=== PATIENT | female | born 1955 | race Caucasian/White ===

== ENCOUNTER 2016-08-31 14:52 | Inpatient (IN) | payer OTHER ==
[2016-08-31 15:11] LABS: Basophils % (Auto) 0.8 % (0.0-1.8); Eosinophils % (Auto) 4.8 % (0.0-4.3); Hematocrit 48.3 % (30.3-42.9); Mean Corpuscular HGB Conc 33 % (30-34); Mean Corpuscular Hemoglobin 31 pg (28-32); Mean Corpuscular Volume 93 fl (79-97); Platelet Count 220 K/mm3 (140-440); Red Blood Count 5.22 M/mm3 (3.65-5.03); Red Cell Distribution Width 12.7 % (13.2-15.2); White Blood Count 9.1 K/mm3 (4.5-11.0)
--- NOTE | 2016-08-31 15:15 | Cat Scan Report ---
CT scan of head without contrast: No previous studies available. History: Suspected stroke. Findings: Ventricles are midline in location and normal in size. Ill-defined focal area of low attenuation measuring 3 x 4 cm in diameter noted in the right temporal lobe and a focal area of low attenuation measuring 2.1 x 1.0 cm diameter noted in the right basal ganglia. Focal ill-defined area of low attenuation at the right posterior parietal region measuring 2.2 x 2.1 cm in diameter. No evidence of hemorrhage. No extra-axial fluid collection. Mucosal edema of the right ethmoid, air fluid level in right maxillary sinus and mucosal thickening of sphenoid sinuses. Impression: Multiple areas of low attenuation probably chronic or acute infarcts. MRI scanning recommended. Sinus disease.
[2016-08-31] MEDS ORDERED: TYLENOL PO ONE (15:17)
--- NOTE | 2016-08-31 15:17 | Emergency Department Report ---
HPI - General Time Seen by Provider: 08/31/16 15:01 - [facility] HPI: The patient is a 61-year-old female who presents for evaluation of strokelike symptoms. The patient her report slurred speech since last night, greater than 12 hours prior to my evaluation, constant, severe, and left lower facial drooping and left arm weakness since 9 AM this morning, greater than 6 hours prior to my evaluation, also constant since onset, mild to moderate in severity, waxing and waning in course. The patient denies fever, head injury, headache, neck pain, neck stiffness, vision or hearing changes, smell or taste changes, paresthesias, seizure-like activity, urine or bowel incontinence or retention. ED Review of Systems ROS: Stated complaint: CVA Other details as noted in HPI Constitutional: denies: fever ENT: denies: throat or neck pain Respiratory: denies: cough, shortness of breath Cardiovascular: denies: chest pain Endocrine: denies unexplained weight loss or gain Gastrointestinal: denies: abdominal pain, nausea Genitourinary: denies: dysuria Musculoskeletal: denies: leg swelling Skin: denies: rash Neurological: Reports left facial droop, slurred speech, and left arm weakness denies: headache Hematological/Lymphatic: denies: easy bleeding or easy bruising Psych: denies sadness or hopelessness Physical Exam - Physical Exam Vital Signs: Blood pressure 184/84, heart rate 74, temperature 98F, respiratory rate 16 Physical Exam: General: well-nourished, well-developed, no acute distress Head: Normocephalic, atraumatic Eyes: normal sclera, EOMI, PERRL ENT: Mucous membranes are pale and dry Neck: trachea midline, neck supple, No neck stiffness, no cervical adenopathy Respiratory: Breath sounds equal bilaterally, no wheezing, rales, or rhonchi Cardio: S1 and S2 present, no murmurs, rubs, gallops, capillary refill is delayed Abdomen: Normoactive bowel sounds, soft abdomen, no rigidity, no guarding or rebound tenderness Musc: No pitting edema Skin: No rash Neuro: Alert oriented 3, mild shortness be spasm, left lower facial drooping present, mild left arm coordination deficit compared to the right arm, although no pronator drift, no other weakness, no sensation deficits, reflexes 2+ symmetric on DTR testing, no other obvious gross neuro deficits Psych: Normal affect ED Medical Decision Making - Lab Data Result diagrams: 08/31/16 15:00 08/31/16 15:00 - Medical Decision Making The patient was seen and examined by myself. The patient is placed on a threat monitoring analyst and continuous pulse ox. On initial evaluation, the patient was found to be in no distress. Evaluation orders were placed. CAT scan of the head reveals multiple likely acute versus subacute infarcts in the right parietal and temporal lobes. As the patient's symptoms began greater than 6 hours ago, the patient is not a TPA candidate. The patient is given a tablet of aspirin for treatment of her stroke. The on-call neurologist Dr. Chaidez recommends obtaining echocardiogram and carotid Dopplers. Lab results reveal elevated hemoglobin and hematocrit, consistent with hemoconcentration and exam findings of dehydration, and elevated glucose level of 291, and otherwise labs were grossly unremarkable. The patient is given 500cc normal saline fluid bolus for treatment of dehydration and hyperglycemia. The on-call hospitalist service was contacted. They agreed to admit the patient for further treatment and close monitoring. The ED admit order was placed. The patient was admitted in guarded condition. Critical care attestation.: If time is entered above; I have spent that time in minutes in the direct care of this critically ill patient, excluding procedure time. ED Disposition Clinical Impression: Acute ischemic stroke, Dehydration, Acute hyperglycemia Disposition: DISCHARGED TO HOME OR SELFCARE Is pt being admited?: Yes Does the pt Need Aspirin: Yes Condition: Serious Time of Disposition: 15:17
[2016-08-31] MEDS ORDERED: ACTIVASE IV ONE ×2 (15:19)
[2016-08-31] MEDS ORDERED: NACL 0.9% IV ONE (15:19)
[2016-08-31 15:24] LABS: INR 1.03 (0.87-1.13); Partial Thromboplastin Time 25.3 Sec. (24.2-36.6)
[2016-08-31 16:05] LABS: Creatine Kinase MB 1.2 ng/mL (0.0-4.0)
[2016-08-31] MEDS ORDERED: BABY ASPIRIN PO ONE (16:05)
[2016-08-31 16:06] LABS: Alanine Aminotransferase 7 units/L (7-56); Albumin 4.1 g/dL (3.9-5); Albumin/Globulin Ratio 1.2 %; Alkaline Phosphatase 162 units/L (35-129); Anion Gap 18 mmol/L; Bilirubin,Total 0.7 mg/dL (0.1-1.2); Blood Urea Nitrogen 4 mg/dL (7-17); Calcium 10.5 mg/dL (8.4-10.2); Carbon Dioxide 26 mmol/L (22-30); Chloride 94.2 mmol/L (98-107); Glucose 291 mg/dL (65-100); Potassium 3.1 mmol/L (3.6-5.0); Sodium 135 mmol/L (137-145); Total Protein 7.5 g/dL (6.3-8.2)
[2016-08-31 16:07] LABS: Creatine Kinase 57 units/L (30-135)
[2016-08-31] MEDS ORDERED: NACL ONE (16:07)
[2016-08-31] MEDS ORDERED: NACL 0.9% 500 ML 500 ML IV ONE (16:07)
[2016-08-31] MEDS ORDERED: ZOFRAN IV PRN (16:47)
[2016-08-31] MEDS ORDERED: MILK OF MAGNESIA PO PRN (16:47)
[2016-08-31] MEDS ORDERED: DULCOLAX PR PRN (16:47)
[2016-08-31] MEDS ORDERED: TYLENOL PO PRN (16:47)
--- NOTE | 2016-08-31 17:22 | History and Physical Report ---
History of Present Illness Date of examination: 08/31/16 Chief complaint: Slurred speech since 9:00 this morning Left-sided weakness and unsteadiness since last night History of present illness: 61-year-old female who denies any medical conditions and apparently has not seen MD in many years , was brought into the emergency room with double complaints, and was noted to have left-sided hemiparalysis and she is being admitted for possible acute stroke. TPA was not administered as she was outside the window of 3 hours. Patient otherwise appears to be quite awake and alert. He has the right gaze preference. Her speech at this time appears fair , maybe a little slow. Apparently she fell last night at home and has been noticed unsteadiness with left arm hanging down. This morning around 9 AM noticed slurred speech and was brought to the ER most of the history is obtained from the patient's the patient is also quite awake and alert. He is no history of loss of consciousness or seizure. Workup with CT scan of the head showed acute versus subacute multiple infarcts in the right basal ganglia right temporal lobe and right post parietal lobe Past History Past Medical History: No medical history Past Surgical History: No surgical history Social history: no significant social history Family history: no significant family history Medications and Allergies Active Meds: Active Medications Acetaminophen (Tylenol) 650 mg PO Q4H PRN PRN Reason: Pain MILD(1-3)/Fever >100.5/DIMAS Aspirin (Aspirin) 325 mg PO QDAY [facility] Atorvastatin Calcium (Lipitor) 80 mg PO QHS [facility] Bisacodyl (Dulcolax) 10 mg MO QDAY PRN PRN Reason: Constipation unrelieved by MOM Clopidogrel Bisulfate (Plavix) 75 mg PO DAILY [facility] Heparin Sodium (Porcine) (Heparin) 5,000 unit SUB-Q Q8HR [facility] Hydralazine HCl (Apresoline) 10 mg IV Q6H PRN PRN Reason: Hypertension Sodium Chloride (Nacl 0.45% 1000 Ml) 1,000 mls @ 42 mls/hr IV DIRECT [facility] Insulin Aspart (Novolog) 0 units SUB-Q Q6H [facility] PRN Reason: Protocol Magnesium Hydroxide (Milk Of Magnesia) 30 ml PO Q4H PRN PRN Reason: Constipation Ondansetron HCl (Zofran) 4 mg IV Q8H PRN PRN Reason: N/V unrelieved by [facility] Potassium Chloride (K-Dur) 40 meq PO ONCE ONE Stop: 08/31/16 17:00 Review of Systems Constitutional: no weight loss, no weight gain, no fever, no chills Ears, nose, mouth and throat: no ear pain, no ear discharge, no sore throat, no headache, no vertigo Cardiovascular: no chest pain, no palpitations, no syncope, no lightheadedness, no shortness of breath, no high blood pressure Respiratory: no cough, no shortness of breath Gastrointestinal: no abdominal pain, no nausea, no vomiting, no diarrhea, no constipation, no melena Genitourinary Female: urge incontinence, no dysuria Menstruation: postmenopausal Rectal: no pain Musculoskeletal: no neck pain, no low back pain, no arthritis Integumentary: no rash Neurological: no head injury, no seizures, no syncope Psychiatric: no anxiety, no depression Endocrine: no excessive thirst, no polydipsia, no polyuria, no nocturia Exam - Constitutional Vitals: Temp Pulse Resp BP Pulse Ox 98.4 F 74 16 186/84 97 08/31/16 15:44 08/31/16 15:44 08/31/16 15:44 08/31/16 15:44 08/31/16 15:44 General appearance: Present: no acute distress, well-nourished, obese - EENT Eyes: Present: PERRL, EOM intact ENT: hearing intact, clear oral mucosa - Neck Neck: Present: supple, normal ROM. Absent: masses or JVD, carotid bruits - Respiratory Respiratory effort: normal Respiratory: bilateral: CTA - Cardiovascular Rhythm: regular Heart Sounds: Present: S1 & S2 - Extremities Extremities: No edema - Abdominal General gastrointestinal: Present: soft, non-tender. Absent: hepatomegaly, splenomegaly - Rectal Rectal Exam: deferred - Integumentary Integumentary: Present: clear - Musculoskeletal Musculoskeletal: left sided weakness (left pronator drift,, power in the left upper and lower extremity is 3 over 5, cannot flex in the left knee is sluggish , there is right gaze preference with subtle left facial droop) - Psychiatric Psychiatric: appropriate mood/affect, intact judgment & insight Results - Labs CBC & Chem 7: 08/31/16 15:00 08/31/16 15:00 Labs: Abnormal lab results 08/31/16 08/31/16 Range/Units 15:00 15:00 RBC 5.22 H (3.65-5.03) M/mm3 Hgb 16.0 H (10.1-14.3) gm/dl Hct 48.3 H (30.3-42.9) % RDW 12.7 L (13.2-15.2) % Eos % (Auto) 4.8 H (0.0-4.3) % Sodium 135 L (137-145) mmol/L Potassium 3.1 L (3.6-5.0) mmol/L Chloride 94.2 L (98-107) mmol/L BUN 4 L (7-17) mg/dL Creatinine 0.4 L (0.7-1.2) mg/dL Glucose 291 H (65-100) mg/dL Calcium 10.5 H (8.4-10.2) mg/dL Alkaline Phosphatase 162 H (35-129) units/L Assessment and Plan - Patient Problems (1) Acute ischemic stroke Current Visit: Yes Status: Acute Plan to address problem: CT scan findings reviewed She was outside the window for TPA Start the patient on aspirin and Plavix We'll scheduled for MRI of the brain and MRA of the neck Neurology consult Speech therapy consult and physical therapy consult (2) Hyperglycemia Current Visit: Yes Status: Acute Plan to address problem: Check A1c Monitor blood sugars with sliding scale coverage (3) Hypokalemia Current Visit: Yes Status: Acute Plan to address problem: Potassium supplements Monitor electrolytes (4) Hypertension Current Visit: Yes Status: Acute Qualifiers: Hypertension type: H Plan to address problem: We will preferred to keep the blood pressure systolic more than 160 for now (5) Obesity (BMI 35.0-39.9 without comorbidity) Current Visit: Yes Status: Acute Plan to address problem: Due to excess calories
--- NOTE | 2016-08-31 17:33 | Admit Criteria Form ---
Admission Criteria Documentation: STROKE: ISCHEMIC Clinical Indications for Admission to Inpatient Care (Place 'X' for any and all applicable criteria): Admission is indicated for ANY ONE of the following(1)(2)(3)(4): [X]I. Acute stroke Extended stay beyond goal length of stay may be needed for(1)(2) [ ]a) Major deficit or clinical deterioration [ ]b) Hospital-acquired infection (eg, urinary tract infection, pneumonia) [ ]c) Embolic cause of stroke [ ]d) Venous thromboembolism(9) [ ]e) Seizures [ ]f) Bleeding (eg, cerebral) [ ]g) Increased intracranial pressure [ ]h) Comorbidities [ ]i) Surgical intervention The original [facility] content created by [employer] has been revised. The portions of the content which have been revised are identified through the use of italic text or in bold, and [facility] has neither reviewed nor approved the modified material. All other unmodified content is copyright [facility]. Please see references footnoted in the original [facility] edition 2016 Admission Criteria Met: Yes
[2016-08-31] MEDS ORDERED: NACL 0.9% 1000 ML 1,000 ML ONE (18:56)
[2016-08-31] MEDS ORDERED: K-DUR PO ONE (18:56)
[2016-08-31] MEDS: K-DUR PO ONE ×2 (19:09→22:50)
[2016-08-31 19:36] LABS: Urine Drugs of Abuse Note Disclamer
[2016-08-31 19:46] LABS: Bilirubin,Urine NEG (Negative); Blood,Urine NEG (Negative); Ketones,Urine TR mg/dL (Negative); Leukocyte Esterase,Urine NEG (Negative); Mucus,Urine FEW /HPF; Nitrite,Urine NEG (Negative); Urobilinogen,Urine < 2.0 mg/dL (<2.0)
[2016-08-31] MEDS ORDERED: NACL 0.45% 1000 ML 1,000 ML IV SCH (20:00)
[2016-08-31] MEDS ORDERED: NOVOLOG SUB-Q ONE (20:23)
[2016-08-31] MEDS: NOVOLOG SUB-Q SCH (20:42)
[2016-08-31] MEDS: HEPARIN SUB-Q SCH (22:50)
[2016-08-31] MEDS: APRESOLINE IV PRN (22:51)
[2016-09-01] MEDS: NOVOLOG SUB-Q SCH ×2 (02:27→05:52)
[2016-09-01] MEDS: HEPARIN SUB-Q SCH ×3 (05:51→21:50)
[2016-09-01 05:54] LABS: Anion Gap 19 mmol/L; BUN/Creatinine Ratio 16.66; Blood Urea Nitrogen 5 mg/dL (7-17); Calcium 9.8 mg/dL (8.4-10.2); Carbon Dioxide 24 mmol/L (22-30); Glucose 287 mg/dL (65-100); Sodium 139 mmol/L (137-145)
--- NOTE | 2016-09-01 11:10 | Consultation ---
History of Present Illness - Reason for Consult Consult date: 09/01/16 stroke - History of Present Illness I dictated a full note on the patient and shalini mcqueen risk factors are at play include HTN, Diabetes, Cholesterol... recommend control BP improve glucose control will continue work up Past History Past Medical History: No medical history Past Surgical History: No surgical history Social history: no significant social history Family history: no significant family history Medications and Allergies Allergies Allergy/AdvReac Type Severity Reaction Status Date / Time No Known Allergies Allergy Unverified 08/31/16 18:11 Active Meds: Active Medications Acetaminophen (Tylenol) 650 mg PO Q4H PRN PRN Reason: Pain MILD(1-3)/Fever >100.5/DIMAS Aspirin (Aspirin) 325 mg PO QDAY [facility] Atorvastatin Calcium (Lipitor) 80 mg PO QHS [facility] Last Admin: 08/31/16 22:50 Dose: 80 mg Bisacodyl (Dulcolax) 10 mg [place] QDAY PRN PRN Reason: Const[place]relie[place] by [facility] Clopidogrel Bisulfate (Plavix) 75 mg PO DAILY [facility] Heparin Sodium (Porcine) (Heparin) 5,000 unit SUB-Q Q8HR [facility] Last Admin: 09/01/16 05:51 Dose: 5,000 unit Hydralazine HCl (Apresoline) 10 mg IV Q6H PRN PRN Reason: Hypertension Last Admin: 08/31/16 22:51 Dose: 10 mg Sodium Chloride (Nacl 0.45% 1000 Ml) 1,000 mls @ 42 mls/hr IV DIRECT [facility] Last Admin: 08/31/16 22:51 Dose: 42 mls/hr Influenza Virus Vaccine Quadrival (Fluarix Quad [id number](36 Mos+)) 60 mcg IM .ONCE ONE Stop: 09/01/16 12:01 Insulin Aspart (Novolog) 0 units SUB-Q Q6H [facility] PRN Reason: Protocol Last Admin: 09/01/16 05:52 Dose: Not Given Magnesium Hydroxide (Milk Of Magnesia) 30 ml PO Q4H PRN PRN Reason: Constipation Ondansetron HCl (Zofran) 4 mg IV Q8H PRN PRN Reason: N/V unrelieved by Reglan Pneumococcal Polyvalent Vaccine (Pneumovax 23) 0.5 ml IM .ONCE ONE Stop: 09/01/16 12:01 Exam - Constitutional Vitals: Temp Pulse Resp BP Pulse Ox 97.2 F L 87 20 132/79 97 09/01/16 04:00 09/01/16 04:00 09/01/16 04:00 09/01/16 04:00 09/01/16 10:00 Results - Labs CBC & Chem 7: 08/31/16 15:00 09/01/16 04:51 Labs: Abnormal lab results 08/31/16 09/01/16 09/01/16 Range/Units 20:20 01:58 04:51 Potassium 3.0 L (3.6-5.0) mmol/L BUN 5 L (7-17) mg/dL Creatinine 0.3 L (0.7-1.2) mg/dL Glucose 287 H (65-100) mg/dL POC Glucose 227 H 290 H (70-105) Hemoglobin A1c (4-6) % 09/01/16 09/01/16 Range/Units 04:51 05:51 Potassium (3.6-5.0) mmol/L BUN (7-17) mg/dL Creatinine (0.7-1.2) mg/dL Glucose (65-100) mg/dL POC Glucose 249 H (70-105) Hemoglobin A1c 12.3 H (4-6) %
[2016-09-01] MEDS ORDERED: FLUARIX QUAD 2016-2017(36 MOS+) IM ONE (12:00)
[2016-09-01] MEDS ORDERED: PNEUMOVAX 23 IM ONE (12:00)
--- NOTE | 2016-09-01 13:51 | Magnetic Resonance Report ---
MRI BRAIN WITHOUT AND WITH CONTRAST: 09/01/16 07:00:00 CLINICAL: Stroke. TECHNIQUE: Axial diffusion, T1, FLAIR, gradient echo T2*, and coronal and axial T2 and sagittal T1 plus coronal and axial postcontrast T1 sequences on a 1.5 María Elena magnet. 20.0 cc of Multihance was injected intravenously for the contrast portion of the exam. Consent was obtained prior to the administration of contrast. FINDINGS: Normal ventricles and sulci. Multiple areas of restricted diffusion in the right hemisphere corresponding to hypodensities identified on yesterday's CT head. A large area of restricted diffusion involves the right hankins radiata and right caudate head nucleus and measures approximately 3.7 x 2.4 cm. Restricted diffusion involving most of the right temporal lobe and a few foci of restricted diffusion involving right parietal lobe white matter. These areas demonstrate enhancement postcontrast. Minimal mass effect and no hemorrhage. No extra-axial collection. No mass. Normal pituitary and optic chiasm. The brainstem and cerebellum are normal. The right MCA flow-void is abnormal and the right ICA is very small. The orbits and soft tissues are normal. Mild bilateral maxillary and right ethmoid sinusitis with maxillary mucous retention cysts. Normal calvarium and skull base. IMPRESSION: 1. Subacute nonhemorrhagic infarcts involving the right hankins radiata, right caudate head nucleus, right parietal lobe white matter and right temporal lobe. 2. Minimal mass effect and no hemorrhage. 3. Abnormal right MCA and right ICA flow-voids suggests a right ICA high-grade stenosis or occlusion.
[2016-09-01] MEDS: ASPIRIN PO SCH (14:46)
[2016-09-01] MEDS: PLAVIX PO SCH (14:46)
--- NOTE | 2016-09-01 15:09 | Magnetic Resonance Report ---
FINAL REPORT EXAM: MR MRA/MRV NECK W CON HISTORY: stroke TECHNIQUE: MRA of the neck was performed after the administration of intravenous contrast. PRIORS: None. FINDINGS: The cervical vasculature is patent without evidence of vessel thrombosis, occlusion, dissection or severe vessel stenosis. No aneurysm. The vessel origins are normal. IMPRESSION: Normal MRA of the neck.
--- NOTE | 2016-09-01 16:00 | Progress Note ---
Assessment and Plan Assessment and plan: CVA, right-sided - Sided weakness - Patient is on aspirin, Plavix and statin. - Hypertension - Continue current therapy consult - Neurology consulted Disposition - We'll continue inpatient care History Interval history: Patient has left-sided hemiparesis. Hospitalist Physical - Physical exam Narrative exam: Not in cardiopulmonary distress. Vital signs as documented. Head exam is unremarkable. No scleral icterus . Neck is without jugular venous distension, thyromegaly, or carotid bruits. Lungs are clear to auscultation. Cardiac exam reveals regular rate and Rhythm. First and second heart sounds normal. No murmurs, rubs or gallops. Abdominal exam reveals normal bowel sounds, no masses, no organomegaly and no aortic enlargement. WEIGH BOSS: Left-sided hemiparalysis, facial palsy. - Constitutional Vitals: Temp Pulse Resp BP Pulse Ox 98.1 F 74 18 159/84 95 09/01/16 11:18 09/01/16 11:18 09/01/16 11:18 09/01/16 11:18 09/01/16 11:18 General appearance: Present: no acute distress, well-nourished, obese Results - Labs CBC & Chem 7: 08/31/16 15:00 09/01/16 04:51 Labs: Laboratory Last Values WBC 9.1 K/mm3 (4.5-11.0) 08/31/16 15:00 RBC 5.22 M/mm3 (3.65-5.03) H 08/31/16 15:00 Hgb 16.0 gm/dl (10.1-14.3) H 08/31/16 15:00 Hct 48.3 % (30.3-42.9) H 08/31/16 15:00 MCV 93 fl (79-97) 08/31/16 15:00 MCH 31 pg (28-32) 08/31/16 15:00 MCHC 33 % (30-34) 08/31/16 15:00 RDW 12.7 % (13.2-15.2) L 08/31/16 15:00 Plt Count 220 K/mm3 (140-440) 08/31/16 15:00 Lymph % (Auto) 28.4 % (13.4-35.0) 08/31/16 15:00 [place] % (Auto) 7.1 % (0.0-7.3) 08/31/16 15:00 Eos % (Auto) 4.8 % (0.0-4.3) H 08/31/16 15:00 Baso % (Auto) 0.8 % (0.0-1.8) 08/31/16 15:00 Lymph # 2.6 K/mm3 (1.2-5.4) 08/31/16 15:00 [place] # 0.7 K/mm3 (0.0-0.8) 08/31/16 15:00 Eos # 0.4 K/mm3 (0.0-0.4) 08/31/16 15:00 Baso # 0.1 K/mm3 (0.0-0.1) 08/31/16 15:00 Seg Neutrophils % 58.9 % (40.0-70.0) 08/31/16 15:00 Seg Neutrophils # 5.4 K/mm3 (1.8-7.7) 08/31/16 15:00 PT 13.4 Sec. (12.2-14.9) 08/31/16 15:00 INR 1.03 (0.87-1.13) 08/31/16 15:00 APTT 25.3 Sec. (24.2-36.6) 08/31/16 15:00 Thrombin Time 18.6 Sec. (15.1-19.6) 08/31/16 15:00 Sodium 139 mmol/L (137-145) 09/01/16 04:51 Potassium 3.0 mmol/L (3.6-5.0) L 09/01/16 04:51 Chloride 99.0 mmol/L (98-107) 09/01/16 04:51 Carbon Dioxide 24 mmol/L (22-30) 09/01/16 04:51 Anion Gap 19 mmol/L 09/01/16 04:51 BUN 5 mg/dL (7-17) L 09/01/16 04:51 Creatinine 0.3 mg/dL (0.7-1.2) L 09/01/16 04:51 Estimated GFR > 60 ml/min 09/01/16 04:51 BUN/Creatinine Ratio 16.66 % 09/01/16 04:51 Glucose 287 mg/dL (65-100) H 09/01/16 04:51 POC Glucose 249 (70-105) H 09/01/16 05:51 Hemoglobin A1c 12.3 % (4-6) H 09/01/16 04:51 Calcium 9.8 mg/dL (8.4-10.2) 09/01/16 04:51 Total Bilirubin 0.7 mg/dL (0.1-1.2) 08/31/16 15:00 AST 11 units/L (5-40) 08/31/16 15:00 ALT 7 units/L (7-56) 08/31/16 15:00 Alkaline Phosphatase 162 units/L (35-129) H 08/31/16 15:00 Total Creatine Kinase 57 units/L (30-135) 08/31/16 15:00 CK-MB (CK-2) 1.2 ng/mL (0.0-4.0) 08/31/16 15:00 CK-MB (CK-2) Rel Index 2.1 (0-4) 08/31/16 15:00 Troponin T < 0.010 ng/mL (0.00-0.029) 08/31/16 15:00 Total Protein 7.5 g/dL (6.3-8.2) 08/31/16 15:00 Albumin 4.1 g/dL (3.9-5) 08/31/16 15:00 Albumin/Globulin Ratio 1.2 % 08/31/16 15:00 Urine Color Yellow (Yellow) 08/31/16 19:30 Urine Turbidity Clear (Clear) 08/31/16 19:30 Urine pH 7.0 (5.0-7.0) 08/31/16 19:30 Ur Specific [place] 1.010 (1.003-1.030) 08/31/16 19:30 Urine Protein 30 mg/dl mg/dL (Negative) 08/31/16 19:30 Urine Glucose (UA) >=500 mg/dL (Negative) 08/31/16 19:30 Urine Ketones Tr mg/dL (Negative) 08/31/16 19:30 Urine Blood Neg (Negative) 08/31/16 19:30 Urine Nitrite Neg (Negative) 08/31/16 19:30 Urine Bilirubin Neg (Negative) 08/31/16 19:30 Urine Urobilinogen < 2.0 mg/dL (<2.0) 08/31/16 19:30 Ur Leukocyte Esterase Neg (Negative) 08/31/16 19:30 Urine WBC (Auto) 1.0 /HPF (0.0-6.0) 08/31/16 19:30 Urine RBC (Auto) 2.0 /HPF (0.0-6.0) 08/31/16 19:30 U Epithel Cells (Auto) 2.0 /HPF (0-13.0) 08/31/16 19:30 Hyaline Casts 1 /LPF 08/31/16 19:30 Urine Mucus Few /HPF 08/31/16 19:30 Urine Opiates Screen Presumptive negative 08/31/16 19:30 Urine Methadone Screen Presumptive negative 08/31/16 19:30 Ur Barbiturates Screen Presumptive negative 08/31/16 19:30 Ur Phencyclidine Scrn Presumptive negative 08/31/16 19:30 Ur Amphetamines Screen Presumptive negative 08/31/16 19:30 U Benzodiazepines Scrn Presumptive negative 08/31/16 19:30 Urine Cocaine Screen Presumptive negative 08/31/16 19:30 U Marijuana (THC) Screen Presumptive positive 08/31/16 19:30 Drugs of Abuse Note Disclamer 08/31/16 19:30 Plasma/Serum Alcohol < 0.01 gm% (0-0.07) 08/31/16 16:34
[2016-09-02] MEDS: NOVOLOG SUB-Q SCH ×3 (00:24→14:28)
[2016-09-02] MEDS: HEPARIN SUB-Q SCH ×3 (05:33→22:17)
[2016-09-02 06:35] LABS: Basophils % (Auto) 0.5 % (0.0-1.8); Eosinophils % (Auto) 3.6 % (0.0-4.3); Hematocrit 45.2 % (30.3-42.9); Hemoglobin 15.1 gm/dl (10.1-14.3); Mean Corpuscular HGB Conc 34 % (30-34); Mean Corpuscular Hemoglobin 31 pg (28-32); Mean Corpuscular Volume 93 fl (79-97); Platelet Count 225 K/mm3 (140-440); Red Blood Count 4.87 M/mm3 (3.65-5.03); Red Cell Distribution Width 12.8 % (13.2-15.2); White Blood Count 7.7 K/mm3 (4.5-11.0)
[2016-09-02 06:58] LABS: Blood Urea Nitrogen 3 mg/dL (7-17); Calcium 10.4 mg/dL (8.4-10.2); Carbon Dioxide 26 mmol/L (22-30); Glucose 193 mg/dL (65-100)
[2016-09-02 06:59] LABS: Anion Gap 18 mmol/L; Chloride 99.3 mmol/L (98-107); Sodium 140 mmol/L (137-145)
[2016-09-02 07:31] LABS: Potassium 2.8 mmol/L (3.6-5.0)
--- NOTE | 2016-09-02 08:24 | Consultation ---
HISTORY OF PRESENT ILLNESS: This is a 61-year-old female, who presented to Emergency Room with slurred speech, left-sided weakness, and gait unsteadiness for approximately 12 hours. When she presented, she was obviously not a tPA candidate because last known well time exceeded 3 hour window for tPA. When she was admitted to the hospital, she had been on a multiple medications in the past including Plavix, hydralazine, insulin, magnesium, Zofran, K-Dur, Dulcolax, Lipitor, aspirin, and Tylenol. Review of systems was unremarkable. She had not been under doctor's care recently. Her blood pressure on admission was elevated at 186/84 and has remained elevated since. On review of her CT of the head, she has multiple areas of infarction in the right hemisphere. These were old ischemic infarcts, deep vasoganglion, superficial temporal lobe parietal and distribution indicating probably occlusive disease in the right middle cerebral territory. While in the Emergency Room, the patient's stated that some of the symptoms are occurred in the previous evening, she had fallen, at that point left-sided weakness demonstrated. There was no prior history of stroke in the patient. PHYSICAL EXAMINATION: On examination, her blood pressure is 184/70, pulse rate 80, and respirations 18. Cranial nerves 2-12 centralized weakness on the left, drift to the left upper extremity, weakness of left leg. Right side is completely intact including face, leg and arm strength. Neck is supple. Speech is slightly slurred with the left central facial weakness . No tremors or asterixis. No seizure activity is present. IMPRESSION: Multiple areas of ischemic infarct and right cerebral hemisphere, all of which appear to be acute. MRI scan is pending. We would recommend getting carotid artery ultrasound, review of her laboratories is essentially unremarkable with exception of potassium of being 3.1. She is being addressed. She may have some degree of dehydration since her hematocrit is 48.3 and her glucose is elevated at 291. She has multiple risk factors of , which needed to be addressed to in order to modifier stroke risk in the future such as lower cholesterol, lower blood sugar, and controlled hypertension. I agree with the medical management at this point, I spoke with Dr. Julio a short while ago about her medical management. JOB# [id number] FACUNDO/COURTNEY
[2016-09-02] MEDS: APRESOLINE IV PRN (09:36)
[2016-09-02] MEDS: ASPIRIN PO SCH (09:36)
[2016-09-02] MEDS: PLAVIX PO SCH (09:36)
[2016-09-02] MEDS ORDERED: K-DUR PO ONE (11:06)
--- NOTE | 2016-09-02 13:28 | Progress Note ---
Assessment and Plan Assessment and plan: CVA, right-sided - Sided weakness - Patient is on aspirin, Plavix and statin. - permissive Hypertension - Continue current therapy consult - Neurology consulted Disposition - We'll continue inpatient care History Interval history: Patient has left-sided hemiparesis. Patient said she is feeling better. Hospitalist Physical - Physical exam Narrative exam: Not in cardiopulmonary distress. Vital signs as documented. Head exam is unremarkable. No scleral icterus . Neck is without jugular venous distension, thyromegaly, or carotid bruits. Lungs are clear to auscultation. Cardiac exam reveals regular rate and Rhythm. First and second heart sounds normal. No murmurs, rubs or gallops. Abdominal exam reveals normal bowel sounds, no masses, no organomegaly and no aortic enlargement. FIELD MARKETING DIRECTOR: Left-sided hemiparalysis, facial palsy. - Constitutional Vitals: Temp Pulse Resp BP Pulse Ox 98.8 F 83 18 184/89 100 09/02/16 08:00 09/02/16 10:00 09/02/16 08:00 09/02/16 09:36 09/02/16 08:00 General appearance: Present: no acute distress, well-nourished, obese Results - Labs CBC & Chem 7: 09/02/16 06:00 09/02/16 06:00 Labs: Laboratory Last Values WBC 7.7 K/mm3 (4.5-11.0) 09/02/16 06:00 RBC 4.87 M/mm3 (3.65-5.03) 09/02/16 06:00 Hgb 15.1 gm/dl (10.1-14.3) H 09/02/16 06:00 Hct 45.2 % (30.3-42.9) H 09/02/16 06:00 MCV 93 fl (79-97) 09/02/16 06:00 MCH 31 pg (28-32) 09/02/16 06:00 MCHC 34 % (30-34) 09/02/16 06:00 RDW 12.8 % (13.2-15.2) L 09/02/16 06:00 Plt Count 225 K/mm3 (140-440) 09/02/16 06:00 Lymph % (Auto) 31.9 % (13.4-35.0) 09/02/16 06:00 [place] % (Auto) 6.7 % (0.0-7.3) 09/02/16 06:00 Eos % (Auto) 3.6 % (0.0-4.3) 09/02/16 06:00 Baso % (Auto) 0.5 % (0.0-1.8) 09/02/16 06:00 Lymph # 2.4 K/mm3 (1.2-5.4) 09/02/16 06:00 [place] # 0.5 K/mm3 (0.0-0.8) 09/02/16 06:00 Eos # 0.3 K/mm3 (0.0-0.4) 09/02/16 06:00 Baso # 0.0 K/mm3 (0.0-0.1) 09/02/16 06:00 Seg Neutrophils % 57.3 % (40.0-70.0) 09/02/16 06:00 Seg Neutrophils # 4.4 K/mm3 (1.8-7.7) 09/02/16 06:00 PT 13.4 Sec. (12.2-14.9) 08/31/16 15:00 INR 1.03 (0.87-1.13) 08/31/16 15:00 APTT 25.3 Sec. (24.2-36.6) 08/31/16 15:00 Thrombin Time 18.6 Sec. (15.1-19.6) 08/31/16 15:00 Sodium 140 mmol/L (137-145) 09/02/16 06:00 Potassium 2.8 mmol/L (3.6-5.0) L* 09/02/16 06:00 Chloride 99.3 mmol/L (98-107) 09/02/16 06:00 Carbon Dioxide 26 mmol/L (22-30) 09/02/16 06:00 Anion Gap 18 mmol/L 09/02/16 06:00 BUN 3 mg/dL (7-17) L 09/02/16 06:00 Creatinine 0.4 mg/dL (0.7-1.2) L 09/02/16 06:00 Estimated GFR > 60 ml/min 09/02/16 06:00 BUN/Creatinine Ratio 7.50 % 09/02/16 06:00 Glucose 193 mg/dL (65-100) H 09/02/16 06:00 POC Glucose 182 (70-105) H 09/02/16 11:44 Hemoglobin A1c 12.3 % (4-6) H 09/01/16 04:51 Calcium 10.4 mg/dL (8.4-10.2) H 09/02/16 06:00 Total Bilirubin 0.7 mg/dL (0.1-1.2) 08/31/16 15:00 AST 11 units/L (5-40) 08/31/16 15:00 ALT 7 units/L (7-56) 08/31/16 15:00 Alkaline Phosphatase 162 units/L (35-129) H 08/31/16 15:00 Total Creatine Kinase 57 units/L (30-135) 08/31/16 15:00 CK-MB (CK-2) 1.2 ng/mL (0.0-4.0) 08/31/16 15:00 CK-MB (CK-2) Rel Index 2.1 (0-4) 08/31/16 15:00 Troponin T < 0.010 ng/mL (0.00-0.029) 08/31/16 15:00 Total Protein 7.5 g/dL (6.3-8.2) 08/31/16 15:00 Albumin 4.1 g/dL (3.9-5) 08/31/16 15:00 Albumin/Globulin Ratio 1.2 % 08/31/16 15:00 Urine Color Yellow (Yellow) 08/31/16 19:30 Urine Turbidity Clear (Clear) 08/31/16 19:30 Urine pH 7.0 (5.0-7.0) 08/31/16 19:30 Ur Specific [place] 1.010 (1.003-1.030) 08/31/16 19:30 Urine Protein 30 mg/dl mg/dL (Negative) 08/31/16 19:30 Urine Glucose (UA) >=500 mg/dL (Negative) 08/31/16 19:30 Urine Ketones Tr mg/dL (Negative) 08/31/16 19:30 Urine Blood Neg (Negative) 08/31/16 19:30 Urine Nitrite Neg (Negative) 08/31/16 19:30 Urine Bilirubin Neg (Negative) 08/31/16 19: Urine Urobilinogen < 2.0 mg/dL (<2.0) 08/31/16 19:30 Ur Leukocyte Esterase Neg (Negative) 08/31/16 19:30 Urine WBC (Auto) 1.0 /HPF (0.0-6.0) 08/31/16 19:30 Urine RBC (Auto) 2.0 /HPF (0.0-6.0) 08/31/16 19:30 U Epithel Cells (Auto) 2.0 /HPF (0-13.0) 08/31/16 19:30 Hyaline Casts 1 /LPF 08/31/16 19:30 Urine Mucus Few /HPF 08/31/16 19:30 Urine Opiates Screen Presumptive negative 08/31/16 19:30 Urine Methadone Screen Presumptive negative 08/31/16 19:30 Ur Barbiturates Screen Presumptive negative 08/31/16 19:30 Ur Phencyclidine Scrn Presumptive negative 08/31/16 19:30 Ur Amphetamines Screen Presumptive negative 08/31/16 19:30 U Benzodiazepines Scrn Presumptive negative 08/31/16 19:30 Urine Cocaine Screen Presumptive negative 08/31/16 19:30 U Marijuana (THC) Screen Presumptive positive 08/31/16 19:30 Drugs of Abuse Note Disclamer 08/31/16 19:30 Plasma/Serum Alcohol < 0.01 gm% (0-0.07) 08/31/16 16:34 Hypokalemia, repleted
[2016-09-02 14:22] LABS: Carbon Dioxide 25 mmol/L (22-30)
[2016-09-02 14:23] LABS: Anion Gap 19 mmol/L; BUN/Creatinine Ratio 13.33; Blood Urea Nitrogen 4 mg/dL (7-17); Calcium 10.5 mg/dL (8.4-10.2); Chloride 98.8 mmol/L (98-107); Glucose 200 mg/dL (65-100); Sodium 140 mmol/L (137-145)
[2016-09-03] MEDS: NOVOLOG SUB-Q SCH ×4 (00:57→18:47)
[2016-09-03] MEDS: HEPARIN SUB-Q SCH ×3 (05:23→22:32)
[2016-09-03] MEDS: ASPIRIN PO SCH (10:11)
[2016-09-03] MEDS: PLAVIX PO SCH (10:12)
--- NOTE | 2016-09-03 13:44 | Progress Note ---
Assessment and Plan Assessment and plan: CVA, right-sided - Left Sided weakness - Patient is on aspirin, Plavix and statin. - permissive Hypertension - Continue current therapy consult - Pending PT/ OT evaluation - Neurology consulted Diabetes mellitus type 2 - Newly diagnosed - Hemoglobin A1c is 12.5 - Sliding-scale insulin, 10 units of long-acting insulin - Follow closely - Diabetic education - Patient needs insulin management as an outpatient Disposition - Possible discharge tomorrow to home. History Interval history: Patient has left-sided hemiparesis. Patient said she is feeling better. Hospitalist Physical - Physical exam Narrative exam: Not in cardiopulmonary distress. Vital signs as documented. Head exam is unremarkable. No scleral icterus . Neck is without jugular venous distension, thyromegaly, or carotid bruits. Lungs are clear to auscultation. Cardiac exam reveals regular rate and Rhythm. First and second heart sounds normal. No murmurs, rubs or gallops. Abdominal exam reveals normal bowel sounds, no masses, no organomegaly and no aortic enlargement. PASTRY COOK: Left-sided hemiparalysis, facial palsy. - Constitutional Vitals: Temp Pulse Resp BP Pulse Ox 97.4 F L 18 L 18 189/86 94 09/03/16 12:10 09/03/16 12:10 09/03/16 12:10 09/03/16 12:10 09/03/16 12:10 General appearance: Present: no acute distress, well-nourished, obese Results - Labs CBC & Chem 7: 09/02/16 06:00 09/02/16 13:24 Labs: Laboratory Last Values WBC 7.7 K/mm3 (4.5-11.0) 09/02/16 06:00 RBC 4.87 M/mm3 (3.65-5.03) 09/02/16 06:00 Hgb 15.1 gm/dl (10.1-14.3) H 09/02/16 06:00 Hct 45.2 % (30.3-42.9) H 09/02/16 06:00 MCV 93 fl (79-97) 09/02/16 06:00 MCH 31 pg (28-32) 09/02/16 06:00 MCHC 34 % (30-34) 09/02/16 06:00 RDW 12.8 % (13.2-15.2) L 09/02/16 06:00 Plt Count 225 K/mm3 (140-440) 09/02/16 06:00 Lymph % (Auto) 31.9 % (13.4-35.0) 09/02/16 06:00 [place] % (Auto) 6.7 % (0.0-7.3) 09/02/16 06:00 Eos % (Auto) 3.6 % (0.0-4.3) 09/02/16 06:00 Baso % (Auto) 0.5 % (0.0-1.8) 09/02/16 06:00 Lymph # 2.4 K/mm3 (1.2-5.4) 09/02/16 06:00 [place] # 0.5 K/mm3 (0.0-0.8) 09/02/16 06:00 Eos # 0.3 K/mm3 (0.0-0.4) 09/02/16 06:00 Baso # 0.0 K/mm3 (0.0-0.1) 09/02/16 06:00 Seg Neutrophils % 57.3 % (40.0-70.0) 09/02/16 06:00 Seg Neutrophils # 4.4 K/mm3 (1.8-7.7) 09/02/16 06:00 PT 13.4 Sec. (12.2-14.9) 08/31/16 15:00 INR 1.03 (0.87-1.13) 08/31/16 15:00 APTT 25.3 Sec. (24.2-36.6) 08/31/16 15:00 Thrombin Time 18.6 Sec. (15.1-19.6) 08/31/16 15:00 Sodium 140 mmol/L (137-145) 09/02/16 13:24 Potassium 3.0 mmol/L (3.6-5.0) L 09/02/16 13:24 Chloride 98.8 mmol/L (98-107) 09/02/16 13:24 Carbon Dioxide 25 mmol/L (22-30) 09/02/16 13:24 Anion Gap 19 mmol/L 09/02/16 13:24 BUN 4 mg/dL (7-17) L 09/02/16 13:24 Creatinine 0.3 mg/dL (0.7-1.2) L 09/02/16 13:24 Estimated GFR > 60 ml/min 09/02/16 13:24 BUN/Creatinine Ratio 13.33 % 09/02/16 13:24 Glucose 200 mg/dL (65-100) H 09/02/16 13:24 POC Glucose 166 (70-105) H 09/03/16 06:29 Hemoglobin A1c 12.3 % (4-6) H 09/01/16 04:51 Calcium 10.5 mg/dL (8.4-10.2) H 09/02/16 13:24 Total Bilirubin 0.7 mg/dL (0.1-1.2) 08/31/16 15:00 AST 11 units/L (5-40) 08/31/16 15:00 ALT 7 units/L (7-56) 08/31/16 15:00 Alkaline Phosphatase 162 units/L (35-129) H 08/31/16 15:00 Total Creatine Kinase 57 units/L (30-135) 08/31/16 15:00 CK-MB (CK-2) 1.2 ng/mL (0.0-4.0) 08/31/16 15:00 CK-MB (CK-2) Rel Index 2.1 (0-4) 08/31/16 15:00 Troponin T < 0.010 ng/mL (0.00-0.029) 08/31/16 15:00 Total Protein 7.5 g/dL (6.3-8.2) 08/31/16 15:00 Albumin 4.1 g/dL (3.9-5) 08/31/16 15:00 Albumin/Globulin Ratio 1.2 % 08/31/16 15:00 Urine Color Yellow (Yellow) 08/31/16 19:30 Urine Turbidity Clear (Clear) 08/31/16 19:30 Urine pH 7.0 (5.0-7.0) 08/31/16 19:30 Ur Specific [place] 1.010 (1.003-1.030) 08/31/16 19:30 Urine Protein 30 mg/dl mg/dL (Negative) 08/31/16 19:30 Urine Glucose (UA) >=500 mg/dL (Negative) 08/31/16 19:30 Urine Ketones Tr mg/dL (Negative) 08/31/16 19:30 Urine Blood Neg (Negative) 08/31/16 19:30 Urine Nitrite Neg (Negative) 08/31/16 19:30 Urine Bilirubin Neg (Negative) 08/31/16 19:30 Urine Urobilinogen < 2.0 mg/dL (<2.0) 08/31/16 19:30 Ur Leukocyte Esterase Neg (Negative) 08/31/16 19:30 Urine WBC (Auto) 1.0 /HPF (0.0-6.0) 08/31/16 19:30 Urine RBC (Auto) 2.0 /HPF (0.0-6.0) 08/31/16 19:30 U Epithel Cells (Auto) 2.0 /HPF (0-13.0) 08/31/16 19:30 Hyaline Casts 1 /LPF 08/31/16 19:30 Urine Mucus Few /HPF 08/31/16 19:30 Urine Opiates Screen Presumptive negative 08/31/16 19:30 Urine Methadone Screen Presumptive negative 08/31/16 19:30 Ur Barbiturates Screen Presumptive negative 08/31/16 19:30 Ur Phencyclidine Scrn Presumptive negative 08/31/16 19:30 Ur Amphetamines Screen Presumptive negative 08/31/16 19:30 U Benzodiazepines Scrn Presumptive negative 08/31/16 19:30 Urine Cocaine Screen Presumptive negative 08/31/16 19:30 U Marijuana (THC) Screen Presumptive positive 08/31/16 19:30 Drugs of Abuse Note Disclamer 08/31/16 19:30 Plasma/Serum Alcohol < 0.01 gm% (0-0.07) 08/31/16 16:34
--- NOTE | 2016-09-03 14:15 | Consultation ---
History of Present Illness - Reason for Consult Consult date: 09/03/16 Evaluate for Acute IRU - History of Present Illness 61 y.o. female with acute onset of left sided weakness, dysarthria and gait dysfunction; s/p fall due to weakness. CVA work-up initiated; found to have subacute infarcts in right hankins radiata, rigth caudate head nucleus, right parietal lobe and right temporal lobe. On today, pt continues with left sided weakness. Consult requested for post-acute placement recommendations. Past History Past Medical History: No medical history, diabetes, hypertension Past Surgical History: No surgical history (pt denies) Social history: , lives with family. denies: smoking, alcohol abuse Family history: no significant family history (pt denies) Medications and Allergies Allergies Allergy/AdvReac Type Severity Reaction Status Date / Time No Known Allergies Allergy Unverified 08/31/16 18:11 Active Meds: Active Medications Acetaminophen (Tylenol) 650 mg PO Q4H PRN PRN Reason: Pain MILD(1-3)/Fever >100.5/DIMAS Aspirin (Aspirin) 325 mg PO QDAY [facility] Last Admin: 09/03/16 10:11 Dose: 325 mg Atorvastatin Calcium (Lipitor) 80 mg PO QHS [facility] Last Admin: 09/02/16 22:17 Dose: 80 mg Bisacodyl (Dulcolax) 10 mg GA QDAY PRN PRN Reason: Constipation unrelieved by MOM Clopidogrel Bisulfate (Plavix) 75 mg PO DAILY [facility] Last Admin: 09/03/16 10:12 Dose: 75 mg Heparin Sodium (Porcine) (Heparin) 5,000 unit SUB-Q Q8HR [facility] Last Admin: 09/03/16 05:23 Dose: 5,000 unit Hydralazine HCl (Apresoline) 10 mg IV Q6H PRN PRN Reason: Hypertension Last Admin: 09/02/16 09:36 Dose: 10 mg Insulin Aspart (Novolog) 0 units SUB-Q Q6H [place] PRN Reason: Protocol Last Admin: 09/03/16 06:46 Dose: 2 units Insulin Detemir (Levemir) 10 units SUB-Q QHS [facility] Magnesium Hydroxide (Milk Of Magnesia) 30 ml PO Q4H PRN PRN Reason: Constipation Ondansetron HCl (Zofran) 4 mg IV Q8H PRN PRN Reason: N/V unrelieved by [facility] Review of Systems All systems: negative Ears, nose, mouth and throat: no headache Cardiovascular: no chest pain Respiratory: no cough Genitourinary Female: other (continent of bladder and bowel) Neurological: weakness (left extremities) Exam - Constitutional Vitals: Vital Signs - 12hr 09/03/16 09/03/16 09/03/16 05:58 08:00 08:31 Temperature 98.8 F 98.7 F Pulse Rate 88 Pulse Rate [ From Monitor] Pulse Rate [ 80 Left Radial] Pulse Rate [ 76 Right Radial] Respiratory 18 18 Rate Blood Pressure 138/68 148/72 [Right Arm] O2 Sat by Pulse 98 95 Oximetry 09/03/16 12:10 Temperature 97.4 F L Pulse Rate Pulse Rate [ 18 L From Monitor] Pulse Rate [ Left Radial] Pulse Rate [ 83 Right Radial] Respiratory 18 Rate Blood Pressure 189/86 [Right Arm] O2 Sat by Pulse 94 Oximetry General appearance: no acute distress, other (sitting up in bed; present ) - EENT Eyes: EOM intact ENT: hearing intact - Neck Neck: supple, normal ROM - Respiratory Respiratory effort: normal Respiratory: bilateral: CTA - Cardiovascular Rhythm: regular Heart Sounds: Present: S1 & S2 - Extremities Extremities: No edema - Gastrointestinal General gastrointestinal: Present: soft, non-tender, non-distended, normal bowel sounds - Integumentary Integumentary: Present: clear - Musculoskeletal Musculoskeletal: left sided weakness (flaccid UE/LE) - Neurologic Neurologic: CNII-XII intact, other (decreased sensation on left extremities) - Psychiatric Psychiatric: intact judgment & insight, memory intact, cooperative (flat affect ; answers questions appropriately) - Allied health notes Allied health notes reviewed: PT (mod/maxA with bed mobility and transfers; no gait) FIMS assesment as documented by PT/OT/ST: Locomotion- walk/wheelchair Ambulation Distance 0 - Labs CBC & Chem 7: 09/02/16 06:00 09/02/16 13:24 Labs: Laboratory Results - last 72 hr 08/31/16 08/31/16 08/31/16 19:30 19:30 20:20 WBC RBC Hgb Hct MCV MCH MCHC RDW Plt Count Lymph % (Auto) [place] % (Auto) Eos % (Auto) Baso % (Auto) Lymph # [place] # Eos # Baso # Seg Neutrophils % Seg Neutrophils # Sodium Potassium Chloride Carbon Dioxide Anion Gap BUN Creatinine Estimated GFR BUN/Creatinine Ratio Glucose POC Glucose 227 H Hemoglobin A1c Calcium Urine Color Yellow Urine Turbidity Clear Urine pH 7.0 Ur Specific [place] 1.010 Urine Protein 30 mg/dl Urine Glucose (UA) >=500 Urine Ketones Tr Urine Blood Neg Urine Nitrite Neg Urine Bilirubin Neg Urine Urobilinogen < 2.0 Ur Leukocyte Esterase Neg Urine WBC (Auto) 1.0 Urine RBC (Auto) 2.0 U Epithel Cells (Auto) 2.0 Hyaline Casts 1 Urine Mucus Few Urine Opiates Screen Presumptive negative Urine Methadone Screen Presumptive negative Ur Barbiturates Screen Presumptive negative Ur Phencyclidine Scrn Presumptive negative Ur Amphetamines Screen Presumptive negative U Benzodiazepines Scrn Presumptive negative Urine Cocaine Screen Presumptive negative U Marijuana (THC) Screen Presumptive positive Drugs of Abuse Note Disclamer 09/01/16 09/01/16 09/01/16 01:58 04:51 04:51 WBC RBC Hgb Hct MCV MCH MCHC RDW Plt Count Lymph % (Auto) [place] % (Auto) Eos % (Auto) Baso % (Auto) Lymph # [place] # Eos # Baso # Seg Neutrophils % Seg Neutrophils # Sodium 139 Potassium 3.0 L Chloride 99.0 Carbon Dioxide 24 Anion Gap 19 BUN 5 L Creatinine 0.3 L Estimated GFR > 60 BUN/Creatinine Ratio 16.66 Glucose 287 H POC Glucose 290 H Hemoglobin A1c 12.3 H Calcium 9.8 Urine Color Urine Turbidity Urine pH Ur Specific [place] Urine Protein Urine Glucose (UA) Urine Ketones Urine Blood Urine Nitrite Urine Bilirubin Urine Urobilinogen Ur Leukocyte Esterase Urine WBC (Auto) Urine RBC (Auto) U Epithel Cells (Auto) Hyaline Casts Urine Mucus Urine Opiates Screen Urine Methadone Screen Ur Barbiturates Screen Ur Phencyclidine Scrn Ur Amphetamines Screen U Benzodiazepines Scrn Urine Cocaine Screen U Marijuana (THC) Screen Drugs of Abuse Note 09/01/16 09/01/16 09/01/16 05:51 16:43 21:36 WBC RBC Hgb Hct MCV MCH MCHC RDW Plt Count Lymph % (Auto) [place] % (Auto) Eos % (Auto) Baso % (Auto) Lymph # [place] # Eos # Baso # Seg Neutrophils % Seg Neutrophils # Sodium Potassium Chloride Carbon Dioxide Anion Gap BUN Creatinine Estimated GFR BUN/Creatinine Ratio Glucose POC Glucose 249 H 200 H 176 H Hemoglobin A1c Calcium Urine Color Urine Turbidity Urine pH Ur Specific [place] Urine Protein Urine Glucose (UA) Urine Ketones Urine Blood Urine Nitrite Urine Bilirubin Urine Urobilinogen Ur Leukocyte Esterase Urine WBC (Auto) Urine RBC (Auto) U Epithel Cells (Auto) Hyaline Casts Urine Mucus Urine Opiates Screen Urine Methadone Screen Ur Barbiturates Screen Ur Phencyclidine Scrn Ur Amphetamines Screen U Benzodiazepines Scrn Urine Cocaine Screen U Marijuana (THC) Screen Drugs of Abuse Note 09/02/16 09/02/16 09/02/16 06:00 06:00 06:52 WBC 7.7 RBC 4.87 Hgb 15.1 H Hct 45.2 H MCV 93 MCH 31 MCHC 34 RDW 12.8 L Plt Count 225 Lymph % (Auto) 31.9 [place] % (Auto) 6.7 Eos % (Auto) 3.6 Baso % (Auto) 0.5 Lymph # 2.4 [place] # 0.5 Eos # 0.3 Baso # 0.0 Seg Neutrophils % 57.3 Seg Neutrophils # 4.4 Sodium 140 Potassium 2.8 L* Chloride 99.3 Carbon Dioxide 26 Anion Gap 18 BUN 3 L Creatinine 0.4 L Estimated GFR > 60 BUN/Creatinine Ratio 7.50 Glucose 193 H POC Glucose 168 H Hemoglobin A1c Calcium 10.4 H Urine Color Urine Turbidity Urine pH Ur Specific [place] Urine Protein Urine Glucose (UA) Urine Ketones Urine Blood Urine Nitrite Urine Bilirubin Urine Urobilinogen Ur Leukocyte Esterase Urine WBC (Auto) Urine RBC (Auto) U Epithel Cells (Auto) Hyaline Casts Urine Mucus Urine Opiates Screen Urine Methadone Screen Ur Barbiturates Screen Ur Phencyclidine Scrn Ur Amphetamines Screen U Benzodiazepines Scrn Urine Cocaine Screen U Marijuana (THC) Screen Drugs of Abuse Note 09/02/16 09/02/16 09/03/16 11:44 13:24 06:29 WBC RBC Hgb Hct MCV MCH MCHC RDW Plt Count Lymph % (Auto) [place] % (Auto) Eos % (Auto) Baso % (Auto) Lymph # [place] # Eos # Baso # Seg Neutrophils % Seg Neutrophils # Sodium 140 Potassium 3.0 L Chloride 98.8 Carbon Dioxide 25 Anion Gap 19 BUN 4 L Creatinine 0.3 L Estimated GFR > 60 BUN/Creatinine Ratio 13.33 Glucose 200 H POC Glucose 182 H 166 H Hemoglobin A1c Calcium 10.5 H Urine Color Urine Turbidity Urine pH Ur Specific [place] Urine Protein Urine Glucose (UA) Urine Ketones Urine Blood Urine Nitrite Urine Bilirubin Urine Urobilinogen Ur Leukocyte Esterase Urine WBC (Auto) Urine RBC (Auto) U Epithel Cells (Auto) Hyaline Casts Urine Mucus Urine Opiates Screen Urine Methadone Screen Ur Barbiturates Screen Ur Phencyclidine Scrn Ur Amphetamines Screen U Benzodiazepines Scrn Urine Cocaine Screen U Marijuana (THC) Screen Drugs of Abuse Note Assessment and Plan Patient was assessed and evaluated for Acute Inpatient Rehab Unit. 61 y.o. female s/p acute right CVA with left hemiparesis, left foot drop. Weakness significantly limits pt's functional independence; will be unable to return home at independent level; will require 24 hour supervision and assistance with self care and transfers. Pt currently lives with , however, has a supportive son that may be able to help after discharge. CM made aware of needs; ?rehab if indigent bed is available. Ongoing medical management for DM, HTN, hypokalemia. Thank you for consultation. - Patient Problems (1) Acute ischemic stroke Current Visit: Yes Status: Acute (2) Hemiparesis affecting left side as late effect of cerebrovascular accident Current Visit: Yes Status: Acute (3) Left foot drop Current Visit: Yes Status: Acute (4) Diabetes Current Visit: Yes Status: Acute Qualifiers: Diabetes mellitus type: type 2 Diabetes mellitus complication status: with hyperglycemia Diabetes mellitus complication detail: D Diabetic retinopathy severity: D Proliferative retinopathy type: P Diabetes mellitus macular edema: D Diabetes mellitus buttermilk drier operator insulin use: without buttermilk drier operator use Laterality: L Chronic kidney disease stage: C Qualified Code(s): E11.65 - Type 2 diabetes mellitus with hyperglycemia (5) Hypertension Current Visit: Yes Status: Chronic Qualifiers: Hypertension type: essential hypertension Qualified Code(s): I10 - Essential (primary) hypertension (6) Hypokalemia Current Visit: Yes Status: Acute
[2016-09-03] MEDS ORDERED: LEVEMIR SUB-Q SCH (22:00)
[2016-09-04] MEDS: NOVOLOG SUB-Q SCH ×5 (01:09→18:45)
[2016-09-04] MEDS: HEPARIN SUB-Q SCH ×2 (06:03→15:06)
[2016-09-04] MEDS: APRESOLINE IV PRN (06:04)
[2016-09-04 06:19] LABS: Basophils % (Auto) 0.5 % (0.0-1.8); Eosinophils % (Auto) 4.8 % (0.0-4.3); Hematocrit 46.7 % (30.3-42.9); Hemoglobin 15.5 gm/dl (10.1-14.3); Mean Corpuscular HGB Conc 33 % (30-34); Mean Corpuscular Hemoglobin 31 pg (28-32); Mean Corpuscular Volume 94 fl (79-97); Platelet Count 229 K/mm3 (140-440); Red Blood Count 4.95 M/mm3 (3.65-5.03); Red Cell Distribution Width 12.6 % (13.2-15.2); White Blood Count 7.7 K/mm3 (4.5-11.0)
[2016-09-04 06:29] LABS: BUN/Creatinine Ratio 16.66; Blood Urea Nitrogen 5 mg/dL (7-17); Calcium 10.7 mg/dL (8.4-10.2); Carbon Dioxide 25 mmol/L (22-30); Chloride 101.3 mmol/L (98-107); Glucose 183 mg/dL (65-100); Sodium 142 mmol/L (137-145)
[2016-09-04 06:32] LABS: Anion Gap 19 mmol/L; Potassium 3.5 mmol/L (3.6-5.0)
--- NOTE | 2016-09-04 10:04 | Discharge Summary ---
Providers - Providers Date of Admission: 08/31/16 16:48 Attending physician: BROOKS CROWE 08/31/16 17:00 Physical Therapy Evaluation and Treat [CONS] Routine Comment: Reason For Exam: stroke Speech Therapy Evaluation and Treat [CONS] Routine Reason For Exam: stroke 09/01/16 16:01 Consult Acute Rehabilitation [CONS] Routine Consulting Provider: DOMO SCHULTZ Reason For Exam: CVA, with left sided hemiparesis Primary care physician: AWNING SPREADER Hospitalization Condition: Serious Hospital course: 61 YO Female admitted for Acute CVA Right Paretial with left hemiparesis, HTN, metabolic Syndrome. PT treated IAW stroke protocol. Pt underwent CT head and MRI brain which were consistent with ischemic stroke. Pt convalesced well during hospital course. Pt medically optimized. Pt seen and evaluated prior to discharge but no significant new physical exam findings since admission. Pt discharged home with home health, and instructed to f/u pcp 1wk for f/u care, and age/risk factor appropriate screening. Pt counseled regarding balanced high protein diet and increased physical activity as well as stroke risk factor reduction. 35 minutes dedicated to patient discharge and education. Disposition: DISCHARGED TO HOME OR SELFCARE - Discharge Diagnoses (1) Acute ischemic stroke Status: Acute (2) Diabetes Status: Acute Qualifiers: Diabetes mellitus type: type 2 Diabetes mellitus complication status: with hyperglycemia Diabetes mellitus complication detail: D Diabetic retinopathy severity: D Proliferative retinopathy type: P Diabetes mellitus macular edema: D Diabetes mellitus alf insulin use: without salvage determiner use Laterality: L Chronic kidney disease stage: C Qualified Code(s): E11.65 - Type 2 diabetes mellitus with hyperglycemia (3) Hypertension Status: Chronic Qualifiers: Hypertension type: essential hypertension Qualified Code(s): I10 - Essential (primary) hypertension Core Measure Documentation - Palliative Care Palliative Care/ Comfort Measures: Not Applicable - Core Measures Any of the following diagnoses?: stroke - Stroke Discharge Requirements Statin for LDL = or >70 mg/dl on DC: Yes Anticoag for atrial fib/atrial flutter: Not Applicable Antithrombotic for ischemic stroke: Yes Exam - Constitutional Vitals: Temp Pulse Resp BP Pulse Ox 97.6 F 92 H 20 173/84 96 09/04/16 08:10 09/04/16 08:10 09/04/16 08:10 09/04/16 08:10 09/04/16 08:10 General appearance: Present: no acute distress, well-nourished - EENT Eyes: Present: PERRL ENT: hearing intact, clear oral mucosa - Neck Neck: Present: supple, normal ROM - Respiratory Respiratory effort: normal Respiratory: bilateral: CTA - Cardiovascular Heart Sounds: Present: S1 & S2. Absent: rub, click - Extremities Extremities: pulses symmetrical, No edema Peripheral Pulses: within normal limits - Abdominal General gastrointestinal: Present: soft, non-tender, non-distended, normal bowel sounds Female genitourinary: Present: normal - Integumentary Integumentary: Present: clear, warm, dry - Musculoskeletal Musculoskeletal: left sided weakness - Psychiatric Psychiatric: appropriate mood/affect, intact judgment & insight - Neurologic Neurologic: no gait normal Plan Follow up with: PRIMARY CARE,MD [Primary Care Provider] - 3-5 Days Prescriptions: Aspirin [Aspirin TAB] 325 mg PO QDAY #30 tablet AtorvaSTATin [Lipitor] 80 mg PO QHS #30 tablet Clopidogrel [Plavix] 75 mg PO DAILY #30 tablet hydrALAZINE [Apresoline TAB] 25 mg PO Q8HR #90 tab Insulin NPH/Regular [Novolin 70/30] 22 unit SQ BIDDIAB #1 vial Lisinopril [Zestril TAB] 10 mg PO QDAY #30 tablet Syringe-Needle,Insulin,0.5 ml [Sure Comfort Insulin Syringe] 1 each MC BID #1 box
[2016-09-04] MEDS: PLAVIX PO SCH (10:48)
[2016-09-04] MEDS: ASPIRIN PO SCH (10:48)
[2016-09-04] MEDS ORDERED: ZESTRIL PO SCH (11:19)
--- NOTE | 2016-09-04 12:00 | Vascular Lab Report ---
CAROTID DUPLEX STUDY: RIGHT PSVEDV CCA PROX: [id number] CCA DIST: 4913 ICA PROX: 31 9 ICA MID: 4212 ICA DIST: 3710 ECA: 59 VERT: 48 16 LEFT PSVEDV CCA PROX:[id number] CCA DIST: 9228 ICA PROX: 6020 ICA MID: 8233 ICA DIST: 9436 ECA: 68 VERT: 29 11 REASON FOR EXAM: Stroke. COMMENTS ON THE RIGHT: Doppler frequency analysis is consistent with 16 to 49 percent diameter reduction of the internal carotid artery. Minimal amount of plaque is seen. The common carotid artery is patent. The external carotid artery is patent. The vertebral artery has antegrade flow. COMMENTS ON THE LEFT: Doppler frequency analysis is consistent with 16 to 49 percent diameter reduction of the internal carotid artery. Minimal amount of plaque is seen. The common carotid artery is patent. The external carotid artery is patent. The vertebral artery has antegrade flow. IMPRESSION: Less than 50% diameter reduction in the internal carotid arteries bilaterally. Consider repeat carotid artery duplex in 12 months.
[2016-09-04] MEDS: APRESOLINE PO SCH ×2 (13:37→15:06)
[2016-09-04 20:30] VITALS: BP 159/72
== END 2016-09-04 20:00 | disposition home or self-care (01) | DRG 65 ==
LOC: ED 14:52 → 4A 16:48
PROVIDERS: ADMIT Internal Medicine; ATTEND Internal Medicine
DX: I63.9 Cerebral infarction, unspecified (principal); G81.91 Hemiplegia, unspecified affecting right dominant side; G81.94 Hemiplegia, unspecified affecting left nondominant side; E87.6 Hypokalemia; E11.65 Type 2 diabetes mellitus with hyperglycemia; I10 Essential (primary) hypertension; E66.9 Obesity, unspecified; E86.0 Dehydration; R47.1 Dysarthria and anarthria; M21.372 Foot drop, left foot; Z68.32 Body mass index [BMI] 32.0-32.9, adult
CPT/HCPCS: 36415; 70450; 70548; 70553; 80048; 80053; 80307; 80320; 81001; 82550; 82553; 82962; 83036; 84484; 85025; 85610; 85670; 85730; 90686; 90732; 93005; 93010; 93880; 95819; A9270-GY; A9577; G0480; J0360; J1644; J1815; J1818; J2997; J7030